=== PATIENT | male | born 1995 | race Asian ===

== ENCOUNTER 2018-05-30 01:36 | Emergency (ER) | payer OTHER ==
[~2018-05-30] VITALS: Ht 170.2 cm; Wt 84.1 kg
[2018-05-30 03:09] VITALS: BP 133/91
[2018-05-30] MEDS ORDERED: HYDROCODONE/ACETAMINOPHEN 5-325 MG TABLET PO ONE (03:15)
[2018-05-30] MEDS ORDERED: IBUPROFEN 600 MG TABLET PO ONE (03:15)
[2018-05-30] MEDS ORDERED: SILVER SULFADIAZINE 1% 25 GM CREAM TP ONE (03:45)
== END 2018-05-30 03:53 | disposition home or self-care (01) ==
LOC: EMS 01:37
DX: T23.271A Burn of second degree of right wrist, initial encounter (principal); F17.210 Nicotine dependence, cigarettes, uncomplicated; X10.2XXA Contact with fats and cooking oils, initial encounter; Y93.89 Activity, other specified; Y92.89 Other specified places as the place of occurrence of the external cause; Y99.8 Other external cause status
CPT/HCPCS: 16020; 99284; 99406